=== PATIENT | female | born 1990 | race African-American/Black ===

== ENCOUNTER 2017-11-05 23:24 | Emergency (ER) | payer OTHER ==
[~2017-11-05] VITALS: Ht 152.4 cm; Wt 45.8 kg
--- NOTE | ~2017-11-05 | EKG ---
[place] [address] [facility] [place] [address] ELECTROCARDIOGRAM REPORT Name: KATE SAGASTUME Room #: DEP Garett#: [id number] Admission: 11/05/17 Attend Phys: Discharge: 11/06/17 Date of : [birth year] Report #: [id number] THIS REPORT FOR: //name// 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
[~2017-11-05 23:24] MED LIST: IBUPROFEN 400400 M1; IRON325
[2017-11-05 23:58] LABS: HEMATOCRIT 38.5 % (37.0-47.0); HEMOGLOBIN 13.1 gm/dL (12.0-15.0); MCV 88.2 fL (80.0-100.0); PLATELET COUNT 172 thou/uL (150-400); RBC 4.37 mil/uL (4.20-5.00); RDW 12.8 % (10.5-14.5); WBC 5.9 thou/uL (4.0-11.0)
[2017-11-06 00:01] LABS: ANION GAP 10 mmol/L (7-16); BUN 21 mg/dL (7-18); CALCIUM 9.2 mg/dL (8.5-10.1); CHLORIDE 103 mmol/L (98-107); CO2 24 mmol/L (21-32); GLUCOSE 96 mg/dL (74-106); POTASSIUM 3.9 mmol/L (3.5-5.1); SODIUM 137 mmol/L (136-145)
[2017-11-06 00:07] LABS: ALBUMIN 3.8 g/dL (3.4-5.0); DIRECT BILIRUBIN < 0.1 mg/dL (<0.1-0.3); LIPASE 142 U/L (73-393); SGOT 15 U/L (15-37); SGPT 21 U/L (30-65); TOTAL BILIRUBIN 0.3 mg/dL (<0.1-1.0); TOTAL PROTEIN 7.5 g/dL (6.4-8.2)
[2017-11-06 00:57] LABS: ABSOLUTE NEUTROPHILS 2.7 thou/uL (1.4-8.2); ATYPICAL LYMPHS 3 %
[2017-11-06] MEDS ORDERED: PRILOSEC OTC20 MG PO (01:51)
== END 2017-11-06 02:13 | disposition home or self-care (01) ==
LOC: ER 23:24
PROVIDERS: Emergency Medicine
DX: R07.9 Chest pain, unspecified (principal); K29.70 Gastritis, unspecified, without bleeding

== ENCOUNTER 2017-11-13 20:54 | Emergency (ER) | payer OTHER ==
[~2017-11-13] VITALS: Ht 152.4 cm; Wt 46.3 kg
--- NOTE | ~2017-11-13 | EKG ---
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
[~2017-11-13 20:54] MED LIST changes: +PRILOSEC OTC20 MG PO
[2017-11-13] MEDS ORDERED: NAPROSYN500 MG PO (21:53)
== END 2017-11-13 22:09 | disposition home or self-care (01) ==
LOC: ER 20:54
DX: M94.0 Chondrocostal junction syndrome [Tietze] (principal)

== ENCOUNTER 2017-11-23 01:32 | Emergency (ER) | payer OTHER ==
[~2017-11-23] VITALS: Ht 152.4 cm; Wt 46.3 kg
[~2017-11-23 01:32] MED LIST changes: +NAPROSYN500 MG PO
[2017-11-23] MEDS ORDERED: FLEXERIL PO (02:22)
== END 2017-11-23 02:29 | disposition home or self-care (01) ==
LOC: ER 01:32
DX: M25.511 Pain in right shoulder (principal)